=== PATIENT | female | born 1980 | race Caucasian/White ===

== ENCOUNTER 2021-04-04 16:29 | Emergency (ER) | payer OTHER, BC, SELFPAY ==
[2021-04-04 16:43] VITALS: BP 114/79; PULSE 89; RESP 18; TEMP 37.4; O2SAT 96; BMI 25.8
--- NOTE | 2021-04-04 17:06 | PC.NURSE ---
c-collar in place, patient tolerated well
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
--- NOTE | 2021-04-04 17:10 | ECG_ITS ---
[facility] Test Date: 2021-04-04 Pat Name: Kaye Sosa Department: Room: Gender: Female Mental Health Program Specialist: : [id number] Requested By: Trevor Ruffin Order Number: [id number] Reading MD: SOCRATES ROBLEDO Measurements Intervals [place] Rate: 77 P: 53 KS: 152 QRS: 51 QRSD: 89 T: 35 QT: 374 QTc: 424 Interpretive Statements SINUS RHYTHM No previous ECG available for comparison Electronically Signed On 04-05-2021 18:50:02 CDT by SOCRATES ROBLEDO [id number]
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
[2021-04-04 17:15] VITALS: BP 122/83; PULSE 88; RESP 16; O2SAT 97
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
[2021-04-04] MEDS: ondansetron 2 mg/ML SDV 2 mL 4 MG IVP (17:35)
[2021-04-04] MEDS: HYDROmorphone 1 mg/mL INJ 1 mL 0.5 MG IVP (17:35)
[2021-04-04 17:42] LABS: Add Urine Microscopic? NO; Charge for UA Resulting for Rev
[2021-04-04 17:43] LABS: Basophils % 0.3 %; Eosinophils # 0.1 10^3/uL (0.0-0.8); Eosinophils % 0.4 %; Hematocrit 40.1 % (37.0-47.0); Hemoglobin 12.7 g/dL (11.5-15.3); Lymphocytes # 1.5 10^3/uL (0.8-4.8); Lymphocytes % 10.1 %; Mean Corpuscular HGB Conc 31.7 g/dL (30.0-36.0); Mean Corpuscular Hemoglobin 30.5 pg (28.0-34.0); Mean Corpuscular Volume 96.2 fL (81-99); Mean Platelet Volume 9.8 fL (7.4-10.4); Monocytes # 0.8 10^3/uL (0.2-0.9); Monocytes % 5.8 %; Neutrophils # 11.91 10^3/uL (1.8-7.7); Neutrophils % 82.8 %; Nucleated Red Blood Cells % 0 %; Platelet Count 400 10^3/cmm (130-400); Red Blood Count 4.17 10^6/uL (4.1-5.3); Red Cell Distribution Width 12.3 % (12.1-15.1); White Blood Count 14.4 10^3/uL (4.0-10.0)
[2021-04-04 17:49] LABS: Bilirubin Urine Neg (Negative); Blood Urine Neg (Negative); Glucose Urine UA Norm (Normal); Ketones Urine Negative (Negative); Leukocyte Esterase Urine Negative (Negative); Nitrate Urine Negative (Negative); Protein Urine Neg (Negative); Urine Appearance Clear (CLEAR); Urine Color Yellow (Yellow); Urobilinogen Urine Norm (Negative); pH Urine 5 (5-7)
[2021-04-04 17:50] LABS: HCG Qualitative Urine. Negative (Negative)
[2021-04-04 17:57] LABS: Alanine Aminotransferase 9 U/L (0-33); Alkaline Phosphatase 75 IU/L (35-105); Blood Urea Nitrogen 10 mg/dL (6-20); Carbon Dioxide 21 mmol/L (22-29); Chloride 107 mmol/L (98-107); Globulin 2.8 g/dL (1.3-4.6); Glomerular Filtration Rate 61.1 mL/min (90-130); Glucose 81 mg/dL (65-115); Osmolality Calculated 290 mOsm/kg (285-295); Sodium 141 mmol/L (136-145); Total Bilirubin 0.2 mg/dL (0.15-1.2); Total Protein 6.8 g/dL (6.6-8.7)
[2021-04-04 18:02] LABS: Anion Gap 17.3 (5-19); Aspartate Amino Transferase 19 U/L (0-32); Potassium 4.3 mmol/L (3.5-5.1)
[2021-04-04] MEDS: iohexol 300 mg/mL 100 mL Btl IV (18:09)
[2021-04-04 18:22] VITALS: BP 115/75; PULSE 89; RESP 16; O2SAT 98
--- NOTE | 2021-04-04 19:01 | PC.NURSE ---
Report from BALBIR Godfrey
[2021-04-04 19:30] VITALS: BP 107/77; PULSE 90; RESP 16; O2SAT 100
== END 2021-04-04 19:31 | disposition home or self-care (01) ==
PROVIDERS: Family Medicine; Emergency Provider Emergency Medicine
DX: S20.212A Contusion of left front wall of thorax, initial encounter (principal); V89.2XXA Person injured in unspecified motor-vehicle accident, traffic, initial encounter
CPT/HCPCS: 70450; 71045; 71260; 72125; 73000; 73030; 73562; 74177; 80053; 81003; 81025; 85025; 93005; 96374; 96375; 99284; J1170; J2405; Q9967